=== PATIENT | female | born 1935 | race Caucasian/White ===

== ENCOUNTER 2019-06-07 20:09 | Emergency (ER) | payer MEDICARE, OTHER ==
[~2019-06-07] VITALS: Ht 157.5 cm; Wt 79.5 kg
[2019-06-07 20:24] VITALS: Ht 157.5 cm; Wt 79.5 kg
[2019-06-07] MEDS ORDERED: NORVASC5 MG PO (20:26)
[2019-06-07] MEDS ORDERED: TOPROL XL25 MG PO (20:26)
[2019-06-07] MEDS ORDERED: LOSARTAN-HCTZ1 EAC1 PO (20:26)
[2019-06-07] MEDS ORDERED: MIRAPEX0.5 MG PO (20:27)
[2019-06-07] MEDS ORDERED: CELEBREX200 MG PO (20:27)
[2019-06-07] MEDS ORDERED: LUNESTA1 MG PO (20:28)
[2019-06-07] MEDS ORDERED: OSTEO BI-FLEX1 EAC1 PO (20:28)
[2019-06-07] MEDS ORDERED: OMEPRAZOLE20 M1 PO (20:28)
[2019-06-07] MEDS ORDERED: PROBIOTIC BLEN1 EACH (20:29)
[2019-06-07 20:56] LABS: BASOPHILS 0.5 % (0-2); EOSINOPHILS 3.8 % (0-7); HEMATOCRIT 38.3 % (36.0-48.0); HEMOGLOBIN 13.2 g/dL (12-16); IMMATURE GRANULOCYTES 0.2 % (0-5); LYMPHOCYTES 36.5 % (15-50); MCH 31.7 pg (26.0-34.0); MCHC 34.5 g/dL (31.0-37.0); MCV 91.8 fL (80.0-100.0); MEAN PLATELET VOLUME 10.4 fL (7.4-10.4); MONOCYTES 6.2 % (2-11); NEUTROPHILS 52.8 % (40-80); PLATELET COUNT 254 10x3/uL (130-400); RBC 4.17 10x6/uL (4.00-5.40); RDW 12.6 % (11.5-14.5); WBC 8.3 10x3/uL (4.8-10.8)
[2019-06-07 21:53] LABS: CALC OSMOLALITY 286 mosm/kg (275-300); CALCIUM 9.1 mg/dL (8.5-10.1); CARBON DIOXIDE 26.5 mmol/L (21.0-32.0); CHLORIDE - SERUM 103 mmol/L (98-107); CREATININE - SERUM 1.1 mg/dL (0.6-1.3); GLUCOSE 142 mg/dL (74-106); POTASSIUM - SERUM 3.4 mmol/L (3.5-5.1); SODIUM 141 mmol/L (136-145); UREA NITROGEN 25 mg/dL (7-18); eGFR NON AFRICAN AMERICAN 50 mL/min (90-120)
[2019-06-07 22:09] LABS: ALBUMIN 3.6 g/dL (3.4-5.0); ALKALINE PHOSPHATASE 96 U/L (30-120); ALT (SGPT) 32 U/L (10-68); BILIRUBIN - TOTAL 0.23 mg/dL (0.2-1.3); CKMB 3.1 U/L (0.0-3.6); CREATINE KINASE 118 UL (21-215); PROTEIN - SERUM 7.6 g/dL (6.4-8.2)
[2019-06-07 22:10] LABS: TROPONIN-I < 0.017 ng/mL (0.000-0.060)
[2019-06-07 22:48] VITALS: BP 154/59
== END 2019-06-07 22:48 | disposition home or self-care (01) ==
LOC: D.ER 20:09
PROVIDERS: Emergency Medicine
DX: M25.512 Pain in left shoulder (principal); M25.511 Pain in right shoulder; M54.6 Pain in thoracic spine; I10 Essential (primary) hypertension; I48.91 Unspecified atrial fibrillation; G25.81 Restless legs syndrome